=== PATIENT | female | born 1990 | race African-American/Black ===

== ENCOUNTER 2020-06-15 14:11 | Observation (INO) | payer BC, MEDICAID ==
[2015-11-15 14:30] VITALS: BP 111/56
[~2020-06-15 14:11] MED LIST: SULF1TAB24 PO
[2020-06-15] MEDS ORDERED: IV RINGERS,LACTATED 1000ML 1,000 ML IV SCH (15:00)
[2020-06-15 15:08] LABS: BILIRUBIN,URINE NEGATIVE (NEG); CLARITY,URINE CLEAR; COLOR,URINE YELLOW; NITRITE,URINE NEGATIVE (NEG); PH,URINE 6.5 (<5.0-8.0); PROTEIN,URINE NEGATIVE (NEG-TRACE)
[2020-06-15 15:14] LABS: BARBITURATES NEG (NEG); BENZODIAZEPINES NEG (NEG); CANNABINOIDS NEG (NEG); COCAINE NEG (NEG); METHADONE NEG (NEG); OPIATES NEG (NEG); PHENCYCLIDINE NEG (NEG)
[2020-06-15 15:15] LABS: BACTERIA,URINE 0 /HPF (0-FEW); RBC,URINE 0 /HPF (0-2); WBC,URINE OCC /HPF (0-4)
[2020-06-15 15:16] LABS: AMPHETAMINE/METHAMPHETAMINE NEG (NEG)
== END 2020-06-15 16:00 | disposition home or self-care (01) ==
LOC: 3 SO LND 14:11
PROVIDERS: ADMIT Obstetrics & Gynecology; ATTEND Obstetrics & Gynecology
DX: O26.893 Other specified pregnancy related conditions, third trimester (principal); R10.30 Lower abdominal pain, unspecified; N89.8 Other specified noninflammatory disorders of vagina; O62.9 Abnormality of forces of labor, unspecified; Z3A.35 35 weeks gestation of pregnancy; Z79.899 Other long term (current) drug therapy
CPT/HCPCS: 59025; 80307; 81001; G0378; G0379

== ENCOUNTER 2021-01-19 13:14 | Emergency (ER) | payer MEDICAID, OTHER ==
[~2021-01-19] VITALS: Ht 160 cm; Wt 99.0 kg
[2021-01-19 13:56] VITALS: BP 115/62
[2021-01-19 15:11] LABS: BILIRUBIN,URINE SMALL (NEG); CLARITY,URINE CLOUDY; COLOR,URINE AMBER; NITRITE,URINE NEGATIVE (NEG); PROTEIN,URINE NEGATIVE (NEG-TRACE)
[2021-01-19 15:16] LABS: BACTERIA,URINE MODERATE /HPF (0-FEW)
[2021-01-19 15:17] LABS: RBC,URINE 0 /HPF (0-2)
[2021-01-19] MEDS ORDERED: IV NORMAL SALINE 1000ML BAG 1,000 ML IV ONE (15:30)
[2021-01-19] MEDS ORDERED: cefTRIAXone IV Push 1 GM VIAL. IVP ONE (15:30)
--- NOTE | 2021-01-19 16:49 | RAD ---
OB ultrasound HISTORY: , not feeling baby movement Sonographic examination of the was performed by transabdominal technique. Multiple static i mages were obtained. FINDINGS: There is a single live intrauterine . The heartbeat is confirmed at 153 beats per minute. Vi sualization of structures is limited this early gestational age. The LMP of 10/22/2020 corresponds with a 12 week 5 day gestational age and estimated confinement of [facility] 2021. Estimated size by ultrasound is 16 weeks 6 days estimated confinement June 30, 2019. The measurements are as follows: BPD 3.5 cm 16 weeks 5 days Head circumference 13 cm 16 weeks 4 days Abdominal circumference 11.4 cm 17 weeks 1 day The femur length obtained due to movement. IMPRESSION: 1. Single live intrauterine measures 16 weeks 6 days gestational age. Discrepancy with that by LMP is likely secondary to an inaccurate LMP. 2. No abnormality identified. A short-term follow-up ultrasound could be performed if clinically federico cated otherwise a structural survey could be performed at 18-21 weeks gestational age. Electronically signed by: Conrado Deluna III, MD (01/19/2021 4:47 PM) [facility]
--- NOTE | 2021-01-19 16:56 | PHYS DOC ---
Past Medical History Past Medical History: Asthma Past Surgical History: No Surgical History Smoking Status: Never Smoker Alcohol Use: None Drug Use: None General Adult EDM: Chief Complaint: OTHER COMPLAINTS HPI: HPI: Patient is a 30 year old female who presents with Covid positive as of December 15 and she is approximately 16 weeks . Patient's main complaint is that she has not felt the baby move today. Patient is G4, P3. She has a history of a 6 months ago with a last menstrual period of October 27. She has a history of asthma. Patient states that her symptoms have mainly been headache and dehydration. She states she has not taken any medications to help her symptoms. Patient denies abdominal pain, vomiting, dizziness, syncope, numbness or tingling, focal weakness, vision change, chest pain, shortness of air. Patient denies any pain at this time. Review of Systems: Review of Systems: Constitutional: + fever or chills. [] Eyes: Denies change in visual acuity. [] HENT: Denies nasal congestion or sore throat. [] Respiratory: Denies cough or shortness of breath. [] Cardiovascular: Denies chest pain or edema. [] GI: Denies abdominal pain, +nausea, denies vomiting, bloody stools or +diarrhea. [] : Denies dysuria. [] Musculoskeletal: Denies back pain or joint pain. [] Integument: Denies rash. [] Neurologic: + Intermittent headache, denies focal weakness or sensory changes. [] Endocrine: Denies polyuria or polydipsia. [] Lymphatic: Denies swollen glands. [] Psychiatric: Denies depression or anxiety. [] Heart Score: C/O Chest Pain: No Risk Factors: Risk Factors: DM, Current or recent (<one month) smoker, HTN, HLP, family history of CAD, obesity. Risk Scores: Score 0 - 3: 2.5% MACE over next 6 weeks - Discharge Home Score 4 - 6: 20.3% MACE over next 6 weeks - Admit for Clinical Observation Score 7 - 10: 72.7% MACE over next 6 weeks - Early Invasive Strategies Current Medications: Current Medications Medications (Trade) Dose Ordered Sig/Miki Start Time Stop Time Status Last Admin Dose Admin Ceftriaxone Sodium (Rocephin) 1 gm 1X ONCE 01/19/21 15:30 01/19/21 15:31 DC 01/19/21 16:22 1 GM Sodium Chloride 1,000 ml @ 1,000 mls/hr 1X ONCE 01/19/21 15:30 01/19/21 16:29 DC 01/19/21 16:21 1,000 MLS/HR Allergies: Allergies: Allergies Coded Allergies Type Severity Reaction Last Updated Verified No Known Allergies Allergy Unknown 07/20/15 Yes Physical Exam: PE: Constitutional: Well developed, well nourished, no acute distress, non-toxic appearance. [] HENT: Normocephalic, atraumatic, bilateral external ears normal, oropharynx moist, no oral exudates, nose normal. [] Eyes: PERRLA, EOMI, conjunctiva normal, no discharge. [] Neck: Normal range of motion, no tenderness, supple, no stridor. [] Cardiovascular:Heart rate regular rhythm, no murmur [] Lungs & Thorax: Bilateral breath sounds clear to auscultation [] Abdomen: Bowel sounds normal, soft, no tenderness, no masses, no pulsatile masses. [] Skin: Warm, dry, no erythema, no rash. [] Back: No tenderness, no CVA tenderness. [] Extremities: No tenderness, no cyanosis, no clubbing, ROM intact, no edema. [] Neurologic: Alert and oriented X 3, normal motor function, normal sensory function, no focal deficits noted. [] Psychologic: Affect normal, judgement normal, mood normal. [] Normal physical exam Current Patient Data: Labs: Laboratory Tests Test 01/19/21 14:55 Urine Collection Type Unknown Urine Color Christine Urine Clarity Cloudy Urine pH 6.0 (<5.0-8.0) Urine Specific [place] >=1.030 (1.000-1.030) Urine Protein Negative mg/dL (NEG-TRACE) Urine Glucose (UA) Negative mg/dL (NEG) Urine Ketones (Stick) Trace mg/dL (NEG) Urine Blood Negative (NEG) Urine Nitrite Negative (NEG) Urine Bilirubin Small (NEG) Urine Urobilinogen Dipstick 1.0 mg/dL (0.2 mg/dL) Urine Leukocyte Esterase Moderate (NEG) Urine RBC 0 /HPF (0-2) Urine WBC 5-10 /HPF (0-4) Urine Squamous Epithelial Cells Many /LPF Urine Bacteria Moderate /HPF (0-FEW) Urine Mucus Marked /LPF Vital Signs: Vital Signs Date Time Temp Pulse Resp B/P (MAP) Pulse Ox O2 Delivery O2 Flow Rate FiO2 01/19/21 13:56 97.9 88 18 115/62 (74) 97 Room Air 97.9 EKG: EKG: [] Radiology/Procedures: Radiology/Procedures: [] Impression: [facility] [address] [place] [address] IMAGING REPORT Signed PATIENT: HEIDI SHEPPARD TACCOUNT: [id number] : 1990 LOCATION: ER AGE: 30 SEX: F EXAM STATUS: REG ER ORD. PHYSICIAN: RAJINDER VILLA APRN REASON: NOT FEELING BABY MOVING, COVID+ PROCEDURE: OB LIMITED OB ultrasound HISTORY: , not feeling baby movement Sonographic examination of the was performed by transabdominal technique. Multiple static images were obtained. FINDINGS: There is a single live intrauterine . The heartbeat is confirmed at 153 beats per minute. Visualization of structures is limited this early gestational age. The LMP of 10/22/2020 corresponds with a 12 week 5 day gestational age and estimated confinement of July 29, 2021. Estimated size by ultrasound is 16 weeks 6 days estimated confinement June 30, 2019. The measurements are as follows: BPD 3.5 cm 16 weeks 5 days Head circumference 13 cm 16 weeks 4 days Abdominal circumference 11.4 cm 17 weeks 1 day The femur length obtained due to movement. IMPRESSION: 1. Single live intrauterine measures 16 weeks 6 days gestational age. Discrepancy with that by LMP is likely secondary to an inaccurate LMP. 2. No abnormality identified. A short-term follow-up ultrasound could be performed if clinically indicated otherwise a structural survey could be performed at 18-21 weeks gestational age. Electronically signed by: Juan Manuel Díaz III, MD (01/19/2021 4:47 PM) [facility] DICTATED and SIGNED BY: JUAN MANUEL DÍAZ III, MD DATE: 01/19/21 [id number] 0 Course & Med Decision Making: Course & Med Decision Making Pertinent Labs and Imaging studies reviewed. (See chart for details) COVID-19 CRITERIA: The patient was evaluated during the global COVID-19 pandemic, and that diagnosis was suspected/considered upon their initial presentation. Their evaluation, treatment and testing was consistent with current guidelines for patients who present with complaints or symptoms that may be related to COVID-19. See HPI. Alert and oriented x4. Ambulatory steady gait. Speaks in full clear sentences. Urinalysis shows dehydration. She is given a liter of fluids. Abdomen is soft and nontender. Ultrasound shows no acute findings and baby is stable. Vital signs are within normal limits. Cap refill less than 2 seconds. Skin pink warm and dry. Lungs are clear to all station all lobes. [] Dragon Disclaimer: Dragon Disclaimer: This electronic medical record was generated, in whole or in part, using a voice recognition dictation system. Departure Departure Impression: Primary Impression: COVID Additional Impressions: Concern about complication without diagnosis Dehydration Disposition: 01 HOME / SELF CARE / HOMELESS Condition: STABLE Referrals: UNKNOWN PCP NAME (PCP) DEXTER GUTIERREZ MD Patient Instructions: ABCs of , Dehydration, Adult, Diarrhea, [id number], Diet for Diarrhea, Adult, Fever Additional Instructions: Follow-up with your OB doctor. Drink plenty of fluids. Take Tylenol for your pain or fever. Rest. You have been tested for or diagnosed with COVID-19. It is an infection caused by a new type of coronavirus. COVID-19 will cause cold-like or mild flu symptoms in most. It can cause more severe symptoms like problems breathing in some. There is no treatment for COVID-19. The body will clear the infection over time. Self-care will help to ease discomfort. Steps to Take: Self-Care Rest as needed. Healthy habits may help you feel better. Steps include: Choose healthy foods including fruits and vegetables. Drink water throughout the day. Get plenty of sleep each night. If you smoke, try to quit. It may ease breathing. Avoid alcohol. Keep Others Healthy The virus can spread to others. Droplets are released every time you sneeze or cough. The droplets can get into the mouth, nose, or eyes of people near you and lead to infection. To lower the chances of spreading COVID-19 to others: Stay at home until your doctor has said it is safe to leave. If you tested positive this will mean staying isolated until both of the following are true: At least 7 days have passed since the start of illness. You are free of fever for at least 72 hours without the use of medicine. During this time: - Avoid public areas, events, or transportation. Do not return to work or school until your doctor has said it is safe to do so. - Call ahead if you need to go to a medical center. Let them know you may have COVID-19. It will help them guide you where to go. They may also ask you to wear a facemask when you come to the office. - If you call for emergency medical services, let them know you may have COVID- 19. While at home: - Try to avoid close contact with others. Stay about 6 feet away. - If possible, spend most of your time in a separate room from others. - Use a face mask if you will be in close contact with others such as sharing a room or vehicle. - Have someone wipe down common surfaces in the home. Use household mixing tumbler operator every day on areas like doorknobs, counters, or sinks. - Cough or sneeze into a tissue. Throw the tissue away right after use. If a tissue is not available, cough or sneeze into your elbow. - Wash your hands often. Wash them after sneezing or coughing. Use soap and water and wash for at least 20 seconds. Alcohol based hand equipment cleaner can be used if soap and water is not available. - Do not prepare food for others. Avoid sharing personal items like forks, spoons, or toothbrushes. - Avoid close contact with pets while you are sick. There is no evidence of the virus passing to pets. This is a safety step until more is known about this virus. Isolation can be frustrating. Social interaction can help. Keep in touch with friends and family through phone and tech options. You can still interact with others in your home, just keep a safe distance of about 6 feet. Follow-up: Your doctors office will check in with you to see if there are any changes in your health. You may be asked to keep track of symptoms to share with them. They will also let you know when you are clear to be in public again. Problems to Look Out For: Contact your doctor if your recovery is not going as you expect. Get emergency care if you have problems such as: - Trouble breathing - Nonstop chest pain or pressure - Changes in awareness, confusion, or problems waking - Lips or face have bluish color - Worsening of symptoms If you think you have an emergency, call for emergency medical services right away. As taken from [facility] Corey [facility]ITAL[facility] DAMIAN APRN Jan 19, 2021 16:56
== END 2021-01-19 17:42 | disposition home or self-care (01) ==
LOC: ER 13:14
DX: O98.512 Other viral diseases complicating pregnancy, second trimester (principal); U07.1 COVID-19; R51.9 Headache, unspecified; E86.0 Dehydration; O99.512 Diseases of the respiratory system complicating pregnancy, second trimester; J45.909 Unspecified asthma, uncomplicated; Z3A.16 16 weeks gestation of pregnancy
CPT/HCPCS: 76815; 81001; 87086; 96361; 96374; 99284; J0696; J7030; 87077

== ENCOUNTER 2021-03-20 11:05 | Observation (INO) | payer OTHER ==
[2021-03-20] MEDS ORDERED: IV RINGERS,LACTATED 1000ML 1,000 ML IV SCH (11:45)
[2021-03-20 12:04] LABS: BILIRUBIN,URINE NEGATIVE (NEG); CLARITY,URINE CLEAR; COLOR,URINE AMBER; NITRITE,URINE NEGATIVE (NEG); PROTEIN,URINE NEGATIVE (NEG-TRACE)
[2021-03-20 12:14] LABS: BACTERIA,URINE FEW /HPF (0-FEW); RBC,URINE 0 /HPF (0-2)
== END 2021-03-20 12:30 | disposition home or self-care (01) ==
LOC: 3 SO LND 11:05
PROVIDERS: ADMIT Obstetrics & Gynecology; ATTEND Obstetrics & Gynecology
DX: O62.9 Abnormality of forces of labor, unspecified (principal); Z3A.24 24 weeks gestation of pregnancy
CPT/HCPCS: 59025; 81001; G0378; G0379